=== PATIENT | female | born 1945 | race Caucasian/White ===

== ENCOUNTER → 2023-10-17 09:52 | Outpatient (REF) | payer OTHER, SELFPAY | LOC: DHVS 09:52 | PROVIDERS: ATTENDING PHYSICIAN Registered Nurse; FAMILY PHYSICIAN Surgery Vascular Surgery | DX: I65.23 Occlusion and stenosis of bilateral carotid arteries (principal) | CPT/HCPCS: 93880; 93922 ==

== ENCOUNTER 2023-10-30 08:11 | Outpatient (RCR) | payer OTHER, SELFPAY ==
[2023-10-30 08:40] VITALS: BP 134/81
[2023-10-30] MEDS: SODIUM BICARBONATE 1150 MEQ IV (08:53)
== END 2023-10-30 23:59 | disposition home or self-care (01) ==
LOC: OID 08:11
PROVIDERS: ATTENDING PHYSICIAN Surgery Vascular Surgery; FAMILY PHYSICIAN Family Medicine
DX: I77.9 Disorder of arteries and arterioles, unspecified (principal)
CPT/HCPCS: 96365; 96366

== ENCOUNTER → 2023-10-30 09:13 | Outpatient (REF) | payer OTHER, SELFPAY | LOC: RAD 09:13 | PROVIDERS: ATTENDING PHYSICIAN Surgery Vascular Surgery | DX: I77.9 Disorder of arteries and arterioles, unspecified (principal) | CPT/HCPCS: 75635; Q9967 ==

== ENCOUNTER 2023-11-22 13:39 | Inpatient (IN) | payer OTHER, SELFPAY ==
[2023-11-22] VITALS (17 sets, daily range): BP systolic 92–129; BP diastolic 44–53; BMI 27.3
[2023-11-22 12:01] LABS: Hematocrit 30.7 % (37.0-47.0); Mean Corp Hgb Conc. 32.6 g/dL (33.0-37.0); Mean Corpuscular Hgb 31.5 pg (27.0-31.0); Mean Corpuscular Volume 96.8 fL (81.0-99.0); Platelet Count 242 10^3/uL (130-400); Red Blood Cell Count 3.17 10^6/uL (4.20-5.40); Red Cell Dist. Width 13.7 % (11.5-14.5); White Blood Cell Count 8.2 10^3/uL (4.8-10.8)
[2023-11-22 12:33] LABS: Blood Urea Nitrogen 16 mg/dl (7-17); Calcium 9.4 mg/dl (8.4-10.2); Carbon Dioxide 27 mmol/L (22-30); Chloride 103 mmol/L (98-107); Estimated Creatinine Clearance 39 ml/min; Glucose 88 mg/dl (70-99); Potassium 4.7 mmol/L (3.5-5.1); Sodium 139 mmol/L (135-145); eGFR 58.02
--- NOTE | 2023-11-22 12:50 | PTCARENOTE ---
Bedside report taken from Lilo BOWERS. Pt pre- waiting. NO complaints at this time. await anesthesia sign up. Will continue to monitor
[2023-11-22 12:56] LABS: INR 1.04; PT 13.4 Sec (11.4-14.6)
[2023-11-22 12:57] LABS: APTT 28.3 Sec (23.4-35.0)
--- NOTE | 2023-11-22 14:03 | W.SUR.PREOP ---
Pre-Operative Surgical Note
-
I have examined this patient prior to the performance of the scheduled procedure.
The patient's condition is unchanged from the time of the current History and
Physical and the patient is able to undergo the scheduled procedure.
--- NOTE | 2023-11-22 16:29 | W.SUR.POST ---
Surgical Immediate Post Op
Note
Pre Op Diagnosis: PAOD
Post Op Diagnosis: PAOD
Procedure Performed: LLE Angiogram, Angioplasty, and Stent Placement
Primary Surgeon: Janusz Borrero MD
Secondary Surgeons: Enrique Riojas MD, PhD
Anesthesia: Per Anesthesia
Estimated Blood Loss: 20 cc
Fluids: Per Anesthesia
Drains/Shunts: None
Specimens/Cultures: None
Doppler/Duplex/Angio (Y/N): Yes, LLE angio
Complications: None
Operative Findings: Right femoral access, angiogram viabahn stent placed across distal fem-pop anastomosis and built up into the distal SFA with three three more overlapping stents, repeat angio with good result, shickwave and angioplasty to the
common femoral, completion angio with improved flow throughout femoral and popliteal systems.
--- NOTE | 2023-11-22 16:57 | OR.RPT ---
Operative Report
Operative Report
Date of Operation: 11/22/2023
Pre Op Diagnosis:
1.) nonhealing left lower extremity wound
2.) threatened bypass with calcified stenosis of the left common femoral artery and high-grade stenosis of the distal anastomosis
Post Op Diagnosis:
1.) nonhealing left lower extremity wound
2.) threatened bypass with calcified stenosis of the left common femoral artery and high-grade stenosis of the distal anastomosis
Procedure:
1.) balloon angioplasty and stenting of ione left popliteal artery, distal anastomosis and distal bypass graft (overlapping Viabahn stent grafts: 5 mm x 2.5 cm distal, 6 mm x 5 cm, 7 mm x 5 cm, 8 mm x 5 cm proximal)
2.) intravascular lithotripsy to left calcified common femoral artery stenosis (8 mm x 60 mm M5+ Shockwave balloon)
3.) diagnostic aortobiiliac arteriogram
4.) diagnostic left lower extremity arteriogram
5.) ultrasound-guided percutaneous access to the right common femoral artery
Surgeon: Janusz Borrero III, MD
Motor And Controls Tester: Enrique Riojas MD PhD PGY-6
Anesthesia: Sedation with local
Fluoroscopy:
29.7 min
186 mGy
37 Gy.cm2
Complications: None
Estimated Blood Loss: 20 cc
History and Indications for Procedure: 78-year-old female with nonhealing left lower extremity wound. She has a prior [id number] amputation on the right. Preoperative imaging of her left lower extremity duplex revealed a calcified common
femoral artery stenosis and a high-grade stenosis of the distal anastomosis. She was taken to the operating room for arteriogram and endovascular intervention.
Procedure in Detail: Vale Watkins was correctly identified and placed supine on the operating table. After adequate induction of anesthesia the bilateral groins were prepped and draped in the usual sterile fashion. A timeout was performed with
the nursing and anesthesia staff confirming the patient's identity as well as the nature and laterality of the procedure.
The right common femoral artery was identified under ultrasound guidance. The artery was patent. The superior and inferior aspects of the femoral head were identified with radiographic guidance and marked at the skin level. The proposed puncture
site was infiltrated with local anesthesia. We saved a copy of the ultrasound image to the medical record. Under ultrasound guidance we accessed the right common femoral artery with a micropuncture needle and upsized to a 5 Fr sheath over a ThreatStreamson
wire. The wire and a ShepherRutanet hook flush catheter were advanced into the distal abdominal aorta and a diagnostic aorto-biiliac arteriogram was performed:
AORTO-ILIAC ARTERIOGRAM:
Aorta: Patent with no significant stenosis identified
Right common iliac artery: Patent stents with no significant stenosis identified
Right external iliac artery: Patent stents with no significant stenosis identified
Left common iliac artery: Patent with no significant stenosis identified
Left external iliac artery: Patent with no significant stenosis identified
Under roadmap guidance using a Glidewire and the Shepherds hook catheter we selected the left common iliac artery and then the external iliac artery. A catheter was tracked up and over the aortic bifurcation and placed in the distal external iliac
artery. A diagnostic left lower extremity arteriogram was then performed which demonstrated the following:
LEFT LOWER EXTREMITY:
Common femoral artery: Patent. Focal calcified plaque contributing to a high-grade stenosis
Profunda femoral artery: Patent
Superficial femoral artery: Calcified and chronically occluded
Bypass: Patent bypass graft. High-grade stenosis at the distal anastomosis to the above-knee popliteal artery
Popliteal artery: Patent
Three-vessel tibial artery runoff was identified
ENDOVASCULAR INTERVENTION: Systemic heparin was administered. Exchanged out for a 7 Fr 45 cm sheath over a Storq wire. Selected the bypass under roadmap guidance with Quickcross catheter and glidewire. The bypass and distal anastomosis was crossed
with a Quickcross and Glidewire. The wire and catheter were advanced into the popliteal artery and subtraction angio confirmed proper position in the true lumen. Exchanged out for a Done. ST 0.014 wire. Under roadmap guidance I elected to treat the
distal anastomotic stenosis with covered stent grafts. Overlapping Viabahn stent grafts were placed across the distal anastomosis as follows. Under roadmap guidance a 5 mm x 2.5 cm Viabahn was placed in the ione popliteal artery with the
proximal and extending to the distal anastomosis. I then overlapped this more proximally with a 6 mm x 5 cm Viabahn which was placed across the distal anastomosis. I then built-up with a 7 mm x 5 cm Viabahn stent graft and finally placed an 8 mm x
5 cm Viabahn stent graft as the most proximal stent in the distal portion of the bypass. Following deployment of the stents I then treated the distal stents in the ione popliteal artery and across the distal anastomosis with a 6 mm x 40 mm
angioplasty balloon. The more proximal stents were profiled with an 8 mm angioplasty balloon. Subsequent arteriogram demonstrated an excellent technical result with widely patent stents, brisk flow through the distal bypass, intact runoff through
the popliteal artery and three-vessel tibial arteries. No residual stenosis was identified.
I then focused my attention on the proximal stenosis in the common femoral artery. Due to the heavily calcified nature of the arterial disease and in an effort to modify the calcium to achieve maximum luminal gain with endovascular intervention I
elected to proceed with intravascular lithotripsy. A 8 mm x 60 mm M5+ Shockwave balloon was placed across the common femoral artery stenosis under roadmap guidance. Alternating rounds of lithotripsy pulse delivery at sub-nominal pressure and
angioplasty at nominal pressure was performed across the stenosis. In between rounds of pulse delivery and angioplasty the balloon was deflated and repositioned under roadmap guidance. All 300 pulses were delivered. Subsequent arteriogram
demonstrated an excellent technical result. There was brisk flow through the common femoral artery and into the profunda femoral artery and bypass. Significant luminal gain was achieved. Residual calcified plaque was identified but this was a
nonsignificant stenosis.
Satisfied with this result we concluded the procedure. The sheath tip was pulled back into the right external iliac artery. Protamine was administered. The sheath was pulled and direct manual pressure was held over the puncture site. Hemostasis
was achieved. A sterile dressing was applied.
The patient tolerated the procedure well and was taken to the recovery area in stable condition.
Attestation: I was present and responsible for the entire procedure.
Signed:
Janusz Borrero III, MD
[facility] Vascular Surgery
[phone] (cell)
[2023-11-22] MEDS: NSS 1000 IV (17:31)
--- NOTE | 2023-11-22 18:37 | TRANSFER ---
Patient transferred to [address] [place] [address], transferred into hospital bed. Pulses and sites checked with Minerva. Luciana York RN BSN.
--- NOTE | 2023-11-22 19:35 | PTCARENOTE ---
pt arrived at 1830. post arteriogram flow sheet now being implemented which will restart VS. pt AOX3. IVC accidently pulled while changing gown and placing on bed milligan. pt has non healing LLE wound, buttocks intact. needs to remain laying until 1846.
[2023-11-22] MEDS: LIPITOR 40 MG PO (21:04)
[2023-11-22] MEDS: ZETIA 10 MG PO (21:05)
[2023-11-22] MEDS: NEURONTIN 300 MG PO (21:05)
[2023-11-22] MEDS: XARELTO PO (23:00)
--- NOTE | 2023-11-22 23:00 | PTCARENOTE ---
Pt is refusing her Xarelto, she was educated at length the reasoning her vascular surgeon changed her med. Pt states ''I took my asa and Plavix in the morning and don't want to bleed out''. Pt was educated, however she continued to refuse and said
she will take it tomorrow after speaking with Dr. SUBRAMANIAN notified and vascular disaster or damage control specialist.
[2023-11-23] VITALS (7 sets, daily range): BP systolic 99–151; BP diastolic 43–59
[2023-11-23 07:02] LABS: Hematocrit 28.2 % (37.0-47.0); Hemoglobin 9.2 g/dL (12.0-16.0); Mean Corp Hgb Conc. 32.6 g/dL (33.0-37.0); Mean Corpuscular Hgb 32.2 pg (27.0-31.0); Mean Corpuscular Volume 98.6 fL (81.0-99.0); Mean Platelet Volume 9.6 fL (7.4-10.4); Platelet Count 231 10^3/uL (130-400); Red Blood Cell Count 2.86 10^6/uL (4.20-5.40); Red Cell Dist. Width 13.4 % (11.5-14.5); White Blood Cell Count 8.8 10^3/uL (4.8-10.8)
[2023-11-23 07:27] LABS: Blood Urea Nitrogen 17 mg/dl (7-17); Calcium 8.8 mg/dl (8.4-10.2); Carbon Dioxide 24 mmol/L (22-30); Chloride 106 mmol/L (98-107); Estimated Creatinine Clearance 44 ml/min; Glucose 121 mg/dl (70-99); Sodium 137 mmol/L (135-145); eGFR > 60.00
--- NOTE | 2023-11-23 07:39 | W.PN.VS ---
Today's Communication / Plan
-
d/c home on compass protocol
Assessment/Plan
-
s/p agram and stent
- ok to d/c home on compass protocol
- discussed with patient
- follow up in office
Subjective Data
-
Date of Service: November 23, 2023
doing well
no complaints
no pain
Objective Data
-
Vital Signs
Temp Pulse Resp BP Pulse Ox
97.0 F 56 17 99/43 96
11/23/23 04:00 11/23/23 04:00 11/23/23 04:00 11/23/23 04:00 11/23/23 04:00
Intake and Output
11/22/23 11/23/23 11/24/23
06:59 06:59 06:59
Intake Total 1150 / 1150
Balance 1150 / 1150
Intake:
Oral fluids 15 / 15
IV fluids (Total) 1135 / 1135
NSS 215 / 215
Nss 1,000 ml @ 80 mls/hr IV . 80 / 80
[id number] JORGE ALBERTO Rx#:[id number]
Lab Results
11/23/23 05:38
11/23/23 05:38
Calcium 8.8 mg/dl (8.4-10.2) 11/23/23 05:38
Physical Exam
-
rrr
ctab
groin intact
no hematoma
left dp and pt signal
foot warm and pink
[2023-11-23] MEDS: PROTONIX 40 MG PO (08:18)
[2023-11-23] MEDS: NORVASC 5 MG PO (08:18)
[2023-11-23] MEDS: ASPIR LOW (ENTERIC COATED) 81 MG PO (08:18)
[2023-11-23] MEDS: NEURONTIN 300 MG PO (08:18)
[2023-11-23] MEDS: XARELTO 2.5 MG PO (08:19)
[2023-11-23] MEDS: ZESTRIL 10 MG PO (08:19)
--- NOTE | 2023-11-23 11:17 | PTCARENOTE ---
For vascular wound on LLE. She saw a Dr. Alfonso out of Dr. Barney office, not sure date. they use Santyl and seaweed a gauze and Izaiah. She does not want nurse to take it down bc her nurse daughters do it and all supplies are at home. Per pt, slough
and necrotic area is much smaller than when doc saw. She said she will try to make a fu appt with Dr. Alfonso to have some one manage it again. At home she wears prosthetic leg 10-12 hrs a day mainly in w/c but walks with walker to cook or go outside
etc. Showers and dresses self. does typically scoot up and down the courtney steps. but is independent
--- NOTE | 2023-11-23 16:45 | CM ---
Patient with Hx right AKA who is s/p LLE Angiogram, Angioplasty, and Stent Placement.
Met with patient and ;
the patient resides with her in a 2 story house with 2 TAMY.
The patient has been independent in ADLs and ambulation, wearing right leg prosthesis and using RW as needed.
DME - RW, w/c, transport chair, right leg prosthesis
VN - none
SNF - none
Acute Rehab - [facility]
PCP - [facility]
Pharmacy - [facility] [place] [facility]
Patient reports that she has 3 daughters who are nurses. Her daughter Lacey and Heri assist with her wound care at home. She has all wound care dressings and supplies she needs but is running low on Santyl. She is aware to contact
Jamey's office on Saturday who will provide script (per Dr Wade's instruction). Patient declines VN for wound care.
Her will provide transport home today.
No CM d/c needs identified.
Plan home.
== END 2023-11-23 12:15 | disposition home or self-care (01) | DRG 279 ==
LOC: 2 SOUTH 13:39
PROVIDERS: Nurse Practitioner; ADMITTING PHYSICIAN Surgery Vascular Surgery; FAMILY PHYSICIAN Family Medicine
PROC: 047 Lower Arteries, Dilation (ICD-10-PCS; 2023-11-22)
PROC: 04FL3ZZ Fragmentation of Left Femoral Artery, Percutaneous Approach (ICD-10-PCS; 2023-11-22)
PROC: 047L3ZZ Dilation of Left Femoral Artery, Percutaneous Approach (ICD-10-PCS; 2023-11-22)
PROC: B41GZZZ Fluoroscopy of Left Lower Extremity Arteries (ICD-10-PCS; 2023-11-22)
DX: I70.242 Atherosclerosis of native arteries of left leg with ulceration of calf (principal); I70.64 Atherosclerosis of nonbiological bypass graft(s) of the left leg with ulceration; I65.23 Occlusion and stenosis of bilateral carotid arteries; L97.229 Non-pressure chronic ulcer of left calf with unspecified severity; I10 Essential (primary) hypertension; E78.5 Hyperlipidemia, unspecified; G62.9 Polyneuropathy, unspecified; Z88.1 Allergy status to other antibiotic agents; Z89.611 Acquired absence of right leg above knee; Z79.82 Long term (current) use of aspirin; Z79.02 Long term (current) use of antithrombotics/antiplatelets; Z95.820 Peripheral vascular angioplasty status with implants and grafts; Z87.891 Personal history of nicotine dependence
CPT/HCPCS: 75625; 75716; 76937; 80048; 85027; 85610; 85730; 93005; C1725; C1769; C1874; C1894; C9765; Q9967

== ENCOUNTER → 2024-01-01 10:59 | Outpatient (REF) | payer MEDICARE, OTHER, SELFPAY | LOC: RAD 10:59 | PROVIDERS: ATTENDING PHYSICIAN Surgery Vascular Surgery; FAMILY PHYSICIAN Family Medicine | DX: I77.9 Disorder of arteries and arterioles, unspecified (principal) | CPT/HCPCS: 93922; 93925 ==

== ENCOUNTER → 2024-05-25 10:28 | Outpatient (REF) | payer MEDICARE, OTHER, SELFPAY | LOC: RAD 10:28 | PROVIDERS: ATTENDING PHYSICIAN Registered Nurse; FAMILY PHYSICIAN Family Medicine | DX: I77.9 Disorder of arteries and arterioles, unspecified (principal); I65.23 Occlusion and stenosis of bilateral carotid arteries | CPT/HCPCS: 93880; 93922; 93925 ==

== ENCOUNTER → 2024-08-26 10:02 | Outpatient (REF) | payer MEDICARE, OTHER, SELFPAY | LOC: RAD 10:02 | PROVIDERS: ATTENDING PHYSICIAN Registered Nurse; FAMILY PHYSICIAN Family Medicine | DX: I77.9 Disorder of arteries and arterioles, unspecified (principal) | CPT/HCPCS: 93922 ==

== ENCOUNTER 2024-09-18 13:06 | Inpatient (IN) | payer MEDICARE, OTHER, SELFPAY ==
[2024-09-18] VITALS (43 sets, daily range): BP systolic 65–174; BP diastolic 41–109; BMI 28.3; BMI 28.0
[2024-09-18 07:07] LABS: Hematocrit 33.8 % (37.0-47.0); Hemoglobin 11.1 g/dL (12.0-16.0); Mean Corp Hgb Conc. 32.8 g/dL (33.0-37.0); Mean Corpuscular Hgb 31.1 pg (27.0-31.0); Mean Corpuscular Volume 94.7 fL (81.0-99.0); Mean Platelet Volume 9.5 fL (7.4-10.4); Platelet Count 230 10^3/uL (130-400); Red Blood Cell Count 3.57 10^6/uL (4.20-5.40); White Blood Cell Count 7.7 10^3/uL (4.8-10.8)
[2024-09-18 07:12] LABS: APTT 25.9 Sec (23.4-35.0); INR 0.93; PT 12.8 Sec (11.4-14.6)
[2024-09-18 07:28] LABS: Blood Urea Nitrogen 16 mg/dl (7-17); Calcium 9.1 mg/dl (8.4-10.2); Carbon Dioxide 26 mmol/L (22-30); Chloride 105 mmol/L (98-107); Estimated Creatinine Clearance 38 ml/min; Glucose 91 mg/dl (70-99); Potassium 4.8 mmol/L (3.5-5.1); Sodium 138 mmol/L (135-145); eGFR 57.66
--- NOTE | 2024-09-18 09:23 | W.SUR.POST ---
Surgical Immediate Post Op
Note
Pre Op Diagnosis: PAD
Post Op Diagnosis: Same
Procedure Performed: Left lower extremity arteriogram, drug-coated balloon angioplasty to the popliteal artery at bypass, stent placement to left iliac artery
Primary Surgeon: Adair
Secondary Surgeons: Reyna, PGY 5
Anesthesia: Local and sedation
Estimated Blood Loss: Less than 2 cc
Fluids: See anesthesia flowsheet
Drains/Shunts: None
Specimens/Cultures: None
Doppler/Duplex/Angio (Y/N): Y
Complications: None
Operative Findings: Successful stent placement
--- NOTE | 2024-09-18 09:56 | SUR.PHASEI ---
Dr. Goldstein notified pt BP 68/40 and at pt bedside. BP increased to 89/48, per Dr. Goldstein continue IV fluids
[2024-09-18] MEDS: PLAVIX 300 MG PO (10:23)
[2024-09-18] MEDS: NSS 1000 IV ×2 (10:45→20:46)
--- NOTE | 2024-09-18 12:00 | PTCARENOTE ---
ASSESSING NEUROVASCULAR. UNABLE TO FIND DP PULSE WITH DOPPLER. PT WITH DP DOPPLER PULSE EARLIER. PT TOES DUSKY FROM PACU WITH +DOPPLER PULSE. DR MADRIGAL MADE AWARE OF ABSENT PULSE AND TOES COOL TO TOUCH.
--- NOTE | 2024-09-18 12:34 | OR.RPT ---
Operative Report
Operative Report
Date of Operation: 09/18/2024
Pre Op Diagnosis:
1. Nonhealing left morris wound
2. 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
3. History of right lower extremity amputation
Post Op Diagnosis:
1. Nonhealing left morris wound
2. 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
3. History of right lower extremity amputation
Procedure:
1.) drug-coated balloon angioplasty of left popliteal artery stenosis (5 mm x 60 mm Lutonix DCB)
2.) intravascular lithotripsy to left common femoral artery, external iliac artery and common iliac artery (7 mm x 60 mm M5+ Shockwave)
3.) balloon angioplasty and stenting of left common iliac artery and external iliac artery (7 mm x 57 mm express LD)
4.) intravascular lithotripsy to left common iliac artery, external iliac artery, common femoral artery and popliteal artery
5.) diagnostic aortobiiliac arteriogram
6.) diagnostic left lower extremity arteriogram
Surgeon: Janusz Borrero III, MD
Take Out Waiter: Russell Orellana MD, PGY5
Anesthesia: Sedation with local
Fluoroscopy:
28.8 min
231 mGy
46.60 gy.cm2
Complications: None
Estimated Blood Loss: Less than 20 cc
History and Indications for Procedure: 79-year-old female with prior right lower extremity amputation. She has an existing left lower extremity bypass performed elsewhere and I had previously intervened on this. She has a nonhealing left morris
wound and I brought her to the operating room for lower extremity arteriogram
Procedure in Detail: Vale Watkins was correctly identified and placed supine on the operating table. After adequate induction of anesthesia the bilateral groins were prepped and draped in the usual sterile fashion. A timeout was performed with
the nursing and anesthesia staff confirming the patient's identity as well as the nature and laterality of the procedure.
The right common femoral artery was identified under ultrasound guidance. The artery was patent and calcified plaque was identified. The superior and inferior aspects of the femoral head were identified with radiographic guidance and marked at the
skin level. The proposed puncture site was infiltrated with local anesthesia. Under ultrasound guidance we accessed the right common femoral artery with a micropuncture needle and upsized to a 5 Fr sheath over a Polyplex wire. The wire and a
Shepherds hook flush catheter were advanced into the distal abdominal aorta and a diagnostic aorto-biiliac arteriogram was performed:
AORTO-ILIAC ARTERIOGRAM:
Aorta: Heavily calcified. Patent. No significant stenosis identified
Right common iliac artery: Patent. Moderate stenosis at the origin
Right external iliac artery: Patent. Stents patent.
Left common iliac artery: Patent. Heavily calcified. Distal aspect at the iliac bifurcation with bulky calcified plaque contributing to a moderate to high-grade stenosis
Left external iliac artery: Calcified plaque contributing to a high-grade stenosis
Under roadmap guidance using a Glidewire and the Shepherds hook catheter we selected the left common iliac artery and then the external iliac artery. A catheter was tracked up and over the aortic bifurcation and placed in the distal external iliac
artery. A diagnostic left lower extremity arteriogram was then performed which demonstrated the following:
LEFT LOWER EXTREMITY:
Common femoral artery: Calcified plaque contributing to a moderate to high-grade stenosis
Profunda femoral artery: Patent with no significant stenosis identified
Superficial femoral artery: Occluded
Bypass: Patent. Proximal anastomosis widely patent. Stents in the distal portion of the bypass are patent. Focal high-grade stenosis at the distal end of the bypass just beyond the Viabahn stents extending into the popliteal artery behind the
knee.
Popliteal artery: Patent behind the knee and below the knee
Anterior tibial artery: Patent
Tibioperoneal trunk: Patent
Peroneal artery: Patent
Posterior tibial artery: Patent
ENDOVASCULAR INTERVENTION: Systemic heparin was administered. Exchanged out for a 5 Fr 45 cm sheath over a StorFoodista wire. Selected the bypass under roadmap guidance with Quickcross catheter and glidewire. The bypass was crossed with a Quickcross and
Glidewire. The high-grade stenosis at the distal end of the bypass was crossed with the quick cross and Glidewire. The catheter was advanced into the popliteal artery below the knee and an arteriogram confirmed proper position in the true lumen.
A 0.014 wire was placed.
Intravascular ultrasound was then performed. The 0.014 IVUS catheter was advanced over the wire. Measurements were as follows:
Below the knee popliteal artery: 4.4 mm x 4.4 mm
Popliteal artery behind the knee: 5.1 mm x 5.4 mm
Common femoral artery: 5.4 mm x 5.8 mm distal; 5.8 mm x 5.8 mm proximal
External iliac artery: 6.1 mm x 6.1 mm
Common iliac artery: 8.3 mm x 7.6 mm
Areas of stenosis in the distal bypass, common femoral artery, external iliac artery were identified on intravascular ultrasound
Satisfied with the IVUS measurements I then exchanged back out for a Simplex Solutionsq wire. A 6 Israeli 45 cm sheath was brought up and over the aortic bifurcation. I then exchanged back out for a 0.014 wire. A 5 mm x 60 mm Lutonix drug-coated angioplasty
balloon was positioned under roadmap guidance across the stenosis at the distal end of the bypass. This was positioned in the desired location and inflated to nominal pressure. The balloon was held in place for 3 minutes before deflating and
removing over the wire. Subsequent arteriogram demonstrated an excellent technical result with a widely patent popliteal artery and no residual stenosis identified. There was brisk flow through the bypass and the popliteal artery.
We then focused our attention on the common femoral artery and iliac stenoses. The 6 Israeli sheath was pulled back into the common iliac artery. Due to the heavily calcified nature of the iliac and common femoral artery disease and in an effort to
modify the calcium to achieve maximum luminal gain with endovascular intervention I elected to proceed with intravascular lithotripsy. A 7 mm x 60 mm Shockwave balloon was placed across the common femoral artery stenosis under roadmap guidance.
Alternating rounds of lithotripsy pulse delivery at sub-nominal pressure and angioplasty at nominal pressure was performed across the stenosis. In between rounds of pulse delivery and angioplasty the balloon was deflated and repositioned under
roadmap guidance. The external iliac artery and common iliac artery were treated in a similar fashion. All 300 pulses were delivered.
Subsequent arteriogram demonstrated significant improvement but residual calcified plaque and stenosis remained. Under roadmap guidance I then brought into position a 7 mm x 57 mm express LD stent. This was positioned in the desired location under
roadmap guidance and magnification view. The stent was deployed by inflating the balloon to nominal pressure. The balloon was then deflated and removed over the wire. The proximal end of the stent in the common iliac artery was postdilated with
an 8 mm x 20 mm angioplasty balloon.
Subsequent arteriogram demonstrated a widely patent left iliac system. The left common iliac/external iliac stent was widely patent with no significant residual stenosis identified. There was brisk flow through the left iliac system.
Satisfied with this result we concluded the procedure. The sheath tip was pulled back into the right external iliac artery. Protamine was administered. The sheath was secured in place with the plan to pull it in the recovery room
The patient tolerated the procedure well and was taken to the recovery area in stable condition.
Attestation: I was present and responsible for the entire procedure.
Signed:
Janusz Borrero III, MD
Vascular Surgery
[facility]
[2024-09-18] MEDS: HEPARIN 25000 UNITS/250 ML IV (13:13)
--- NOTE | 2024-09-18 15:56 | W.PN.UPDATE ---
Update Note
Progress Note Update
Change in pulse exam while in recovery
Unable to find Dopp signals in Left foot
Stat CTA shows patent left iliac system. Patent L [employer]YING GRADER and profunda
Occluded bypass
Will return to the OR now for intervention
Will atttempt endovascular intervention first. May need open revasc if endo fails.
Technical aspects of this procedure discussed wtih her and her . Benefits/rationale for return to OR explained to them
Op risks explained in detail including but not limited to bleeding, access site injury, contrast nephropathy, distal embolization, worsening ischemia, failure of bypass, inability to re-establish patency of bypass and limb loss
PJF3
Vascular Surgery
[2024-09-18 17:27] LABS: ACT-LR - POC 184 Seconds (116-155)
[2024-09-18 18:34] LABS: ACT-LR - POC 342 Seconds (116-155)
--- NOTE | 2024-09-18 19:18 | OR.RPT ---
Operative Report
Operative Report
Date of Operation: 09/18/2024
Pre Op Diagnosis: Acutely thrombosed bypass, left lower extremity, following endovascular intervention today
Post Op Diagnosis: Acutely thrombosed bypass, left lower extremity, following endovascular intervention today
Procedure:
1.) Pharmacomechanical thrombolysis, left lower extremity using AngioJet Solent Omni catheter with power pulse
2.) Balloon angioplasty and stenting of left popliteal artery (5 mm x 2.5 cm Viabahn)
3.) Balloon angioplasty of left popliteal artery behind and below the knee (4 mm x 100 mm angioplasty balloon)
4.) Balloon angioplasty of left peroneal artery (2.5 mm x 200 mm)
5.) Balloon angioplasty of left posterior tibial artery (2.5 mm x 200 mm)
6.) diagnostic aortobiiliac arteriogram
7.) diagnostic left lower extremity arteriogram
8. Ultrasound-guided percutaneous access of the right common femoral artery
Surgeon: Janusz Borrero III, MD
[employer] Specialist: Russell Orellana MD, PGY5
Anesthesia: Sedation with local
Complications: None
Estimated Blood Loss: Less than 20 cc
History and Indications for Procedure: 79-year-old female who underwent an endovascular intervention on her left lower extremity earlier today. She lost Doppler signals in her left foot in the recovery area and cross-sectional imaging demonstrated
acutely thrombosed left lower extremity bypass. She was brought back to the operating room for intervention.
Procedure in Detail: Vale Watkins was correctly identified and placed supine on the operating table. After adequate induction of anesthesia the bilateral groins were prepped and draped in the usual sterile fashion. A timeout was performed with
the nursing and anesthesia staff confirming the patient's identity as well as the nature and laterality of the procedure.
The right common femoral artery was identified under ultrasound guidance. The artery was patent but with bulky calcified plaque. The superior and inferior aspects of the femoral head were identified with radiographic guidance and marked at the skin
level. The proposed puncture site was infiltrated with local anesthesia. Under ultrasound guidance we accessed the right common femoral artery with a micropuncture needle and upsized to a 5 Fr sheath over a [address].SG wire. The wire and a Shepherds
hook flush catheter were advanced into the distal abdominal aorta and a diagnostic aorto-biiliac arteriogram was performed:
AORTO-ILIAC ARTERIOGRAM:
Aorta: Calcified. Patent.
Right common iliac artery: Calcified. Proximal stenosis
Right external iliac artery: Patent stents
Left common iliac artery: Patent
Left external iliac artery: Widely patent stent
Under roadmap guidance using a Glidewire and the Shepherds hook catheter we selected the left common iliac artery and then the external iliac artery. A catheter was tracked up and over the aortic bifurcation and placed in the distal external iliac
artery. A diagnostic left lower extremity arteriogram was then performed which demonstrated the following:
LEFT LOWER EXTREMITY:
Common femoral artery: Patent. Calcified plaque again demonstrated as seen on prior imaging
Profunda femoral artery: Patent
Superficial femoral artery: Occluded
Bypass: Patent proximal stump but occluded thereafter
ENDOVASCULAR INTERVENTION: Systemic heparin was administered. Exchanged out for a 6 Fr 45 cm sheath over a Storq wire. Selected the bypass under roadmap guidance with Quickcross catheter and glidewire. The occluded bypass was crossed with this
approach. The wire and catheter were advanced into the popliteal artery and subtraction angio confirmed proper position in the true lumen. Thrombus was also identified in the popliteal artery below the knee and in the tibial arteries.
Exchanged out for a Storq wire. Then brought into position the AngioJet Solent Omni catheter through the 6 Somali sheath. In power pulse mode the AngioJet was advanced across the entire length of the bypass and throughout the below-knee popliteal
artery. 8 mg of tPA was administered through power pulse throughout the bypass and popliteal artery. After 15 minutes an arteriogram was performed demonstrating a now patent bypass but sluggish flow was present with residual filling defects
identified proximally and distally. The AngioJet catheter was then readvanced through the bypass with several passes paying particular attention to the filling defects proximally and distally. Following this there was improvement in flow through
the bypass which was now patent but somewhat sluggish flow remained. This appeared to me to be an outflow issue. I then exchanged out for a V18 wire and this was positioned in the peroneal artery. I brought into position a 4 mm x 100 mm
angioplasty balloon. The popliteal artery below the knee, behind the knee and at the distal end of the Viabahn stents was ballooned at nominal pressure. Following this the balloon was removed. Subsequent arteriogram demonstrated continued
irregularity at the distal end of the Viabahn stents. Under roadmap guidance I then brought into position a 5 mm x 2.5 cm Viabahn stent graft. This was overlapped with the existing Viabahn distally and extended into the popliteal artery behind the
knee. The stent was deployed in the desired location. I then profiled the stent with a 5 mm angioplasty balloon. This achieved a nice radiographic result. The bypass was patent on subsequent arteriogram with no filling defects or residual
stenosis identified distally or within the popliteal artery outflow. Unfortunately filling defects were identified in the tibial outflow. I exchanged the V18 wire out for a 0.014 wire and advanced this into the distal peroneal artery. Under
roadmap guidance I performed balloon angioplasty on the entire length of the peroneal artery using a 2.5 mm x 200 mm angioplasty balloon. The balloon was inflated to nominal pressure and held in place for 3-minute inflation. Subsequent arteriogram
demonstrated an improved result with a patent peroneal artery. Next I selected the posterior tibial artery using a Quickcross catheter and Glidewire. I then exchanged out for a [place] ST 0.014 wire which was advanced through the entire length of
the posterior tibial artery and into the plantar artery outflow in the foot. Once again the long 2.5 mm x 200 mm angioplasty balloon was used to balloon the entire length of posterior tibial artery from the ankle to the proximal aspect. 2 separate
inflations were performed at nominal pressure, each for a 3-minute inflation.
Subsequent arteriogram demonstrated a significantly improved result. All 3 tibial arteries were now patent with flow identified into the foot. The completion arteriogram demonstrated a patent bypass with no residual filling defects or stenosis
identified. The popliteal artery outflow was patent. Again demonstrated was flow into all 3 tibial arteries and flow was identified into the foot. Nitroglycerin was administered directly into the distal popliteal artery to treat any spasm in the
tibial artery outflow.
Satisfied with this result we concluded the procedure. The sheath tip was pulled back into the right external iliac artery. The sheath was pulled in the operating room and direct manual pressure was held over the puncture site until hemostasis was
achieved. A sterile dressing was applied.
The patient tolerated the procedure well and was taken to the recovery area in stable condition.
Attestation: I was present and responsible for the entire procedure.
Signed:
Janusz Borrero III, MD
Vascular Surgery
[facility]
[2024-09-18] MEDS: DILAUDID 0.25 MG IV (19:46)
--- NOTE | 2024-09-18 20:15 | PTCARENOTE ---
Addendum entered by Janae Valiente RN 09/19/24 03:10:
Assessment remains unchanged. Pt is resting comfortably in the bed at the lowest position. call melara within reach, monitor in place.
Addendum entered by Janae Valiente RN 09/19/24 01:13:
Pt continues to have small amount of urine but maintains a post void around 350. Left foot maintains a strong dop pulse with increasing warmth and dec cap refill time. Pt resting comfortably call melara within reach, bed in lowest position, heparin
infusing and monitor in place.
Original Note:
Pt received from PACU, brought up on a stretcher and transferred to an ICU bed. Pt was placed on the monitor, and cleaned with CHG wipes. Surgical puncture site (soft and dressing CDI) and left foot (dop pulses) was assessed. Required time for
laying flat with legs straight was reviewed with the pt. See worklist for full assessment. Pt was oriented to the room and use of the call melara. Family was contacted and given a brief update on pt's status and location. Call melara within reach, bed
in lowest position.
[2024-09-18 20:27] LABS: INR 1.08; PT 14.4 Sec (11.4-14.6)
[2024-09-18 20:28] LABS: APTT 38.3 Sec (23.4-35.0)
[2024-09-18 20:33] LABS: Hematocrit 30.9 % (37.0-47.0); Hemoglobin 10.2 g/dL (12.0-16.0); Mean Corpuscular Hgb 31.7 pg (27.0-31.0); Mean Platelet Volume 9.9 fL (7.4-10.4); Platelet Count 169 10^3/uL (130-400); Red Blood Cell Count 3.22 10^6/uL (4.20-5.40); Red Cell Dist. Width 14.1 % (11.5-14.5); White Blood Cell Count 6.4 10^3/uL (4.8-10.8)
[2024-09-18 20:53] LABS: Glucose - Point of Care 89 mg/dl (70-99)
[2024-09-18 21:44] LABS: APTT 31.7 Sec (23.4-35.0)
[2024-09-19] VITALS (28 sets, daily range): BP systolic 95–139; BP diastolic 36–102; BMI 28.4
[2024-09-19 00:43] LABS: ALT (SGPT) < 10 U/L (0-35); AST (SGOT) 27 U/L (14-36); Albumin 2.7 g/dl (3.5-5.0); Alkaline Phosphatase 74 U/L (38-126); Blood Urea Nitrogen 12 mg/dl (7-17); Calcium 7.7 mg/dl (8.4-10.2); Carbon Dioxide 24 mmol/L (22-30); Chloride 113 mmol/L (98-107); Estimated Creatinine Clearance 47 ml/min; Glucose 84 mg/dl (70-99); Magnesium 1.7 mg/dl (1.6-2.3); Phosphorus 3.8 mg/dl (2.5-4.5); Sodium 138 mmol/L (135-145); Total Bilirubin 0.9 mg/dl (0.2-1.3); Total Protein 5.4 g/dl (6.3-8.2); eGFR > 60.00
[2024-09-19 06:07] LABS: Hematocrit 27.9 % (37.0-47.0); Hemoglobin 8.9 g/dL (12.0-16.0); Mean Corp Hgb Conc. 31.9 g/dL (33.0-37.0); Mean Corpuscular Volume 97.2 fL (81.0-99.0); Mean Platelet Volume 9.5 fL (7.4-10.4); Platelet Count 152 10^3/uL (130-400); Red Blood Cell Count 2.87 10^6/uL (4.20-5.40); White Blood Cell Count 6.8 10^3/uL (4.8-10.8)
[2024-09-19 06:12] LABS: INR 1.08; PT 14.3 Sec (11.4-14.6)
[2024-09-19 06:31] LABS: APTT > 200 Sec (23.4-35.0)
[2024-09-19 07:15] LABS: Blood Urea Nitrogen 11 mg/dl (7-17); Carbon Dioxide 23 mmol/L (22-30); Chloride 114 mmol/L (98-107); Estimated Creatinine Clearance 47 ml/min; Glucose 79 mg/dl (70-99); Sodium 137 mmol/L (135-145); eGFR > 60.00
--- NOTE | 2024-09-19 07:24 | CON.INTV ---
Consultation
Consultation Request
Date/Time Consultation Requested: 09/19/2024
Date/Time Consultation Performed: 09/19/2024
Requesting Provider: Janusz Borrero
Performing Provider: Megan Leavitt
Reason for Consultation: Limb ischemia
Medical History
-
Chief Complaint: Limb ischemia
History of Present Illness:
Patient is a very pleasant 79-year-old female who had left lower extremity arteriogram drug coated balloon angioplasty to the popliteal artery at bypass on 09/18/2024. Postprocedure patient was noted to have change in pulse exam and left foot
Doppler signals were not detectable. Patient had a stat CTA which showed patent left iliac system patent left [employer] and profunda but occluded bypass. Patient was subsequently taken back to the operating room. Patient there has pharmacomechanical
thrombolysis left lower extremity and had balloon angioplasty and stenting of left popliteal artery balloon angioplasty of left posterior tibial artery and postprocedure patient was admitted to the ICU for close monitoring. Lifter Driver consultation
was requested for further input.
Past medical history
Severe peripheral vascular disease
Hypertension
Hyperlipidemia
Carotid artery disease
History of uterine cancer
Peripheral neuropathy
History of appendectomy and partial ovarian removal
Complete hysterectomy
Carotid endarterectomy
Right above-knee amputation
Social history
Allergies / Home Medications
Allergies
Allergy/AdvReac Type Severity Reaction Status Date / Time
amoxicillin (From Augmentin) Allergy Nausea/ Verified 09/18/24 17:53
Vomiting
clavulanic acid (From Allergy Nausea/ Verified 09/18/24 17:53
Augmentin) Vomiting
sulfamethoxazole (From Allergy Nausea / Verified 09/18/24 17:53
Bactrim) Vomiting
trimethoprim (From Bactrim) Allergy Nausea / Verified 09/18/24 17:53
Vomiting
Home Medications
�Medication �Instructions �Recorded �Confirmed �Last Taken �Type
amlodipine 5 mg tablet (Norvasc) 5 mg PO DAILY Blood Pressure 10/30/23 09/18/2409/18/25 06:00 History
lisinopril 10 mg tablet 10 mg PO DAILY Blood Pressure 10/30/23 09/15/24 11/22/23 09:00 History
atorvastatin 40 mg tablet (Lipitor) 40 mg PO QPM High Cholesterol 11/18/23 09/18/24 09/17/24 20:00 History
ezetimibe 10 mg tablet (Zetia) 10 mg PO QPM High Cholesterol 11/18/23 09/18/24 09/17/24 20:00 History
pantoprazole 40 mg tablet,delayed 40 mg PO DAILY Gastrointestinal 11/18/23 09/18/24 09/18/24 06:00 History
release (Protonix) Issue
rivaroxaban 2.5 mg tablet (Xarelto) 2.5 mg PO BID #180 tabs 11/22/23 09/18/24 09/16/24 20:00 Rx
gabapentin 300 mg capsule 600 mg PO HS 09/15/24 09/18/24 09/17/24 20:00 History
clopidogrel 75 mg tablet 75 mg PO DAILY #90 tabs 09/18/24 Unknown Rx
Review of Systems
-
Hematologic/Lymphatic: Other (All 14 systems reviewed and negative except as stated above in the history of present illness.)
Vitals / Labs / Diagnostic Testing
Vital Signs
Temp Pulse Resp BP Pulse Ox
98 F 57 11 102/41 99
09/19/24 07:21 09/19/24 03:00 09/19/24 03:00 09/19/24 03:00 09/19/24 03:00
Lab Data
09/19/24 05:46
09/19/24 05:46
Laboratory Results
09/18/24 09/18/24 09/18/24
06:47 12:42 20:09
PT 12.8 14.4
INR 0.93 1.08
APTT 25.9 Cancelled 38.3 H
09/18/24 09/19/24
21:20 05:46
PT 14.3
INR 1.08
APTT 31.7 > 200 H*
Diagnostic Testing:
Physical Exam
-
HEENT: Normocephalic
Cardiovascular: S1/S2
Respiratory: Clear and Non-Labored Respirations
GI: Soft and Non Distended
Neurology: Awake and Alert
Skin: Warm
General: Comfortable
Assessment
-
Patient is s/p - by vascular surgery service, POD #1
Continue observation following procedure
Follow neurovascular checks per protocol
Plavix and heparin drip
Follow BP monitoring and parameters as set by primary team
Monitor on telemetry
Pain control per protocol
RASS goal 0
Longstanding history of smoking, quit 12 years ago, no known diagnosis of COPD or emphysema. Currently saturating 94% on room air.
CXR showed hiatal hernia and probably mild bibasilar chronic reticular changes. Correlates with mild pulmonary fibrotic changes noted on a CT abdomen. Patient reports that she does not have any pulmonary symptoms. She does not follow-up with any
sexton helper. Recommended that if she decides she should follow-up with a sexton helper and have pulmonary function testing performed.
No prior PFTs for review
Encouraged IS
Diet advancement per protocol
Aspiration precautions
Creat at baseline, follow UO
Critical I/Os
Void trials
Replete electrolytes as needed
No signs/symptoms suspicious for infectious etiology at this time
Will observe off antibiotics for now
Follow temperatures/CBC
Hb down to 8.9 from 11.1 yesterday. Electrolytes unremarkable
Encouraged OOB/PT/OT/ambulation once cleared by surgical team
Critical Care time 65 mins -- The patient is admitted for acute critical illness for the treatment of vital organ failure and/or prevention of further life-threatening conditions. Total care includes time spent in review of history, physical exam,
medications, hemodynamic/ventilator parameters, laboratory data, imaging and discussion with house staff, pharmacy, respiratory therapy, motion picture critic, and nursing.
Data:
CXR 08/2024: 1. Mild chronic left to right mediastinal shift.
2. Mild inflammatory interstitial pneumonitis in the basilar segments of both lower lobes.
3. Large hiatal hernia.
CT Abd 08/2024: 1. Occlusion of left femoral to popliteal bypass graft. Occlusion of left above knee popliteal. Distal reconstitution with two-vessel runoff as above. Occlusion of the right common femoral artery.
2. Negative for active extravasation or pseudoaneurysm formation.
3. Advanced aortic atherosclerotic changes. Significant stenoses of SMA, celiac axis, renal arteries.
4. Mild changes of pulmonary fibrosis. Question left hilar adenopathy as above. This could be further evaluated with follow-up CT chest with contrast.
5. Hepatic fatty infiltration. Bilateral renal cortical scarring. Diverticulosis without diverticulitis.
[2024-09-19 07:31] LABS: Calcium 8.2 mg/dl (8.4-10.2); Potassium 4.3 mmol/L (3.5-5.1)
--- NOTE | 2024-09-19 08:00 | PTCARENOTE ---
Assumed care of patient. Pt rec'd A&Ox3. Pleasant. Denies any pain at present. Q1H neurovascular checks per MD orders. S1 S2 reg w/ NSR on monitor. Normal right femoral pulse. Right AKA noted. Left DP/PT doppler. Trace left leg edema. Left
foot/toes warm to touch...elevated on pillow. Rec'd on 2L N/C...sats 97%. O2 removed..sats 95% on R/A. Lungs clear but diminished in bases. Occasional moist NPC. Abdomen round w/ +BS. Good appetite. Cholesterol lowering/2gmm Na+ diet.
Swallows pills w/o issue. PW intact...draining yellow urine. Sacrum intact. Right femoral drsg intact. Left lower leg arterial wound noted...dry sloughing yellow/pink area. GERALD. 20P RAC. Will restart heparin gtt @ 800 unit/hr per MD orders @
0830. VS documented. Call melara within reach. Will continue to monitor.
[2024-09-19] MEDS: PLAVIX 75 MG PO (08:39)
--- NOTE | 2024-09-19 12:00 | PTCARENOTE ---
No major changes in physical assessment. Pt's at bedside. VS documented. Call melara within reach. Lunch ordered.
[2024-09-19] MEDS: XARELTO 2.5 MG PO (13:51)
--- NOTE | 2024-09-19 13:53 | CM ---
manager culture reviewed patient's chart and met with patient and patient with right AKA, and prothesis, lives with spouse in a 2 story home with 2 steps to enter, patient is independent with adl's and uses a walker with ambulation, patient has a
transport chair, home with spouse no needs when stable.
PCP: Dr Hever Taylor
Pharmacy: [facility]
--- NOTE | 2024-09-19 14:30 | PTCARENOTE ---
Pt to discharge to home. Xarelto po provided. D/C instructions reviewed and copies provided. IV site and sign hanger removed. All belongings in room prepared for d/c home. Pt's at bedside...assisting w/ dressing and applying right
leg prothesis. VS completed.
--- NOTE | 2024-09-19 14:44 | W.PN.VS ---
Today's Communication / Plan
-
See plan below for today 09/19/2024.
Assessment/Plan
-
Postoperative day #1. Good graft function. Stents patent. Stop heparin. Give first dose Xarelto (resume Xarelto 2.5 mg dose) now and resume normal [facility] protocol Xarelto/antiplatelet therapy. Discharge home.
-
Total Time Spent with Patient (in minutes): 15
Subjective Data
-
Date of Service: September 19, 2024
Seen and evaluated. Without complaints.
Objective Data
-
Vital Signs
Temp Pulse Resp BP Pulse Ox
98.4 F 78 18 108/50 94
09/19/24 11:22 09/19/24 14:15 09/19/24 14:15 09/19/24 14:00 09/19/24 09:30
Intake and Output
09/18/24 09/19/24 09/20/24
06:59 06:59 06:59
Intake Total 1816 / 1896 720 / 720
Output Total 800 / 800 550 / 550
Balance 1016 / 1096 170 / 170
Intake:
Oral fluids 100 / 100 360 / 360
IV fluids (Total) 1716 / 1796 360 / 360
Heparin 66 / 66 40 / 40
Normosol 100 / 100
nss 1550 / 1630 320 / 320
Output:
Urine, Voided 800 / 800 550 / 550
Other:
Number of approximated MODERATE 1
amounts of urine
Lab Results
09/19/24 05:46
09/19/24 05:46
Calcium 8.2 mg/dl (8.4-10.2) L 09/19/24 05:46
Phosphorus 3.8 mg/dl (2.5-4.5) 09/19/24 00:06
Magnesium 1.7 mg/dl (1.6-2.3) 09/19/24 00:06
Total Bilirubin 0.9 mg/dl (0.2-1.3) 09/19/24 00:
AST 27 U/L (14-36) 09/19/24 00:06
ALT < 10 U/L (0-35) 09/19/24 00:06
Alkaline Phosphatase 74 U/L (38-126) 09/19/24 00:06
Total Protein 5.4 g/dl (6.3-8.2) L 09/19/24 00:06
Albumin 2.7 g/dl (3.5-5.0) L 09/19/24 00:06
Physical Exam
-
Awake and alert. No acute distress. Breathing unlabored. Right groin puncture site flat. No hematoma. Abdomen soft. Left foot warm. Palpable PT pulse. Confirmed with Doppler.
== END 2024-09-19 15:08 | disposition home or self-care (01) | DRG 271 ==
LOC: ICU 13:06
PROVIDERS: Nurse Practitioner Acute Care; ADMITTING PHYSICIAN Surgery Vascular Surgery; FAMILY PHYSICIAN Family Medicine; OTHER PHYSICIAN Internal Medicine; PRIMARYCARE PHYSICIAN Family Medicine
PROC: 047N3Z1 Dilation of Left Popliteal Artery using Drug-Coated Balloon, Percutaneous Approach (ICD-10-PCS; 2024-09-18)
PROC: B41D1ZZ Fluoroscopy of Aorta and Bilateral Lower Extremity Arteries using Low Osmolar Contrast (ICD-10-PCS; 2024-09-18)
PROC: 04CN3ZZ Extirpation of Matter from Left Popliteal Artery, Percutaneous Approach (ICD-10-PCS; 2024-09-18)
PROC: 047S3ZZ Dilation of Left Posterior Tibial Artery, Percutaneous Approach (ICD-10-PCS; 2024-09-18)
PROC: 04FN3ZZ Fragmentation of Left Popliteal Artery, Percutaneous Approach (ICD-10-PCS; 2024-09-18)
PROC: 047D3DZ Dilation of Left Common Iliac Artery with Intraluminal Device, Percutaneous Approach (ICD-10-PCS; 2024-09-18)
PROC: 04FD3ZZ Fragmentation of Left Common Iliac Artery, Percutaneous Approach (ICD-10-PCS; 2024-09-18)
PROC: 04FJ3ZZ Fragmentation of Left External Iliac Artery, Percutaneous Approach (ICD-10-PCS; 2024-09-18)
PROC: 047U3ZZ Dilation of Left Peroneal Artery, Percutaneous Approach (ICD-10-PCS; 2024-09-18)
PROC: 04FL3ZZ Fragmentation of Left Femoral Artery, Percutaneous Approach (ICD-10-PCS; 2024-09-18)
PROC: 047N3DZ Dilation of Left Popliteal Artery with Intraluminal Device, Percutaneous Approach (ICD-10-PCS; 2024-09-18)
DX: I70.202 Unspecified atherosclerosis of native arteries of extremities, left leg (principal); I74.9 Embolism and thrombosis of unspecified artery; I70.90 Unspecified atherosclerosis; E78.00 Pure hypercholesterolemia, unspecified; G62.9 Polyneuropathy, unspecified; I10 Essential (primary) hypertension; I70.8 Atherosclerosis of other arteries; Z79.01 Long term (current) use of anticoagulants; Z79.02 Long term (current) use of antithrombotics/antiplatelets; Z79.899 Other long term (current) drug therapy; Z85.42 Personal history of malignant neoplasm of other parts of uterus; Z87.891 Personal history of nicotine dependence; Z89.611 Acquired absence of right leg above knee; Z90.49 Acquired absence of other specified parts of digestive tract; Z90.710 Acquired absence of both cervix and uterus
CPT/HCPCS: 71045; 75635; 80048; 80053; 82962; 83735; 84100; 85027; 85610; 85730; 93005; J2997; Q9967

== ENCOUNTER → 2024-10-13 07:47 | Outpatient (REF) | payer MEDICARE, OTHER, SELFPAY | LOC: RAD 07:47 | PROVIDERS: ATTENDING PHYSICIAN Surgery Vascular Surgery; FAMILY PHYSICIAN Family Medicine | DX: I77.9 Disorder of arteries and arterioles, unspecified (principal) | CPT/HCPCS: 93922; 93925; 93978 ==